=== PATIENT | female | born 1990 | race African-American/Black ===

== ENCOUNTER 2020-06-20 15:21 | Outpatient (REF) | payer OTHER, SELFPAY | END 2020-06-20 15:22 | disposition home or self-care (01) | LOC: HO.LAB 15:21 | PROVIDERS: Visit Provider Internal Medicine | DX: Z20.822 Contact with and (suspected) exposure to COVID-19 (principal) | CPT/HCPCS: 36415; C9803; U0003; U0005 ==

== ENCOUNTER 2020-08-01 14:12 | Outpatient (REF) | payer OTHER, SELFPAY ==
[2020-08-01 14:59] LABS: COVID-19 Test Negative (Negative)
== END 2020-08-01 14:13 | disposition home or self-care (01) ==
LOC: HO.LAB 14:12
PROVIDERS: Visit Provider Internal Medicine
DX: Z20.822 Contact with and (suspected) exposure to COVID-19 (principal)
CPT/HCPCS: 36415; 87635; C9803

== ENCOUNTER 2020-08-14 09:18 | Outpatient (REF) | payer OTHER, SELFPAY | END 2020-08-14 09:19 | disposition home or self-care (01) | LOC: HO.LAB 09:18 | PROVIDERS: Visit Provider Internal Medicine | DX: Z20.822 Contact with and (suspected) exposure to COVID-19 (principal) | CPT/HCPCS: C9803; U0003; U0005 ==

== ENCOUNTER 2021-10-05 12:09 | Outpatient (REF) | payer OTHER, SELFPAY ==
[2021-10-05 12:26] LABS: MANUAL DIFF FLAG NO
[2021-10-05 13:19] LABS: Basophils Percent Auto 0.4 % (0-2); Eosinophils Absolute Auto 0.2 X10*3/uL (0.0-0.4); Eosinophils Percent Auto 1.8 % (0-4); Hematocrit 38.9 % (37.0-47.0); Hemoglobin 12.8 g/dl (12.0-16.0); Imm Gran Abs Auto 0.04 X10*3/uL (0.00-0.03); Imm Gran Pct Auto 0.5 % (0.0-0.4); Lymphocytes Absolute Auto 2.4 X10*3/uL (1.2-4.9); Mean Corpuscular HGB Conc 32.9 g/dl (31.0-35.0); Mean Corpuscular Hemoglobin 29.8 pg (27.0-33.0); Mean Corpuscular Volume 90.7 fL (80.0-98.0); Monocytes Absolute Auto 0.6 X10*3/uL (0.1-1.2); Monocytes Percent Auto 6.5 % (2-11); Neutrophils Absolute Auto 5.2 x10*3/uL (2.0-8.3); Neutrophils Percent Auto 61.8 % (45-73); Platelet Count 282 X10*3/uL (160-400); Red Blood Count 4.29 X10*6/uL (4.20-5.50); Red Cell Distribution Width 12.7 % (11.0-16.0); White Blood Count 8.4 X10*3/uL (4.8-10.8)
[2021-10-05 14:14] LABS: Free T4 (Free Thyroxine) 0.91 ng/dL (0.71-1.85); Thyroid Stimulating Hormone 1.07 uIU/mL (0.32-4.0); Vitamin D 25-OH Total 11.2 ng/mL (>30)
[2021-10-05 14:19] LABS: Alanine Aminotransferase 44 U/L (0-31); Albumin Level 4.2 g/dL (3.5-5.0); Alkaline Phosphatase 93 U/L (39-117); Anion Gap 11 (12-20); Aspartate Amino Transferase 24 U/L (5-31); Bilirubin Total 0.7 mg/dL (0.0-1.0); Blood Urea Nitrogen 7 mg/dL (9-16); Calcium 8.8 mg/dL (8.4-10.2); Carbon Dioxide 28 mmol/L (22-29); Chloride 105 mmol/L (96-108); Cholesterol 167 mg/dL; Estimated Glomerular Filt Rate > 60; Glucose Random 93 mg/dL (60-115); HDL Cholesterol 42 mg/dL; LDL Cholesterol Calculated 110 mg/dl; Potassium 4.3 mmol/L (3.3-5.1); Sodium 140 mmol/L (135-145); Total Protein 7.1 g/dL (6.5-8.0); Triglycerides 77 mg/dL
[2021-10-05 14:21] LABS: Folate 8.4 ng/mL (> or = 4.0); Vitamin B12 326 pg/mL (200-900)
[2021-10-05 14:43] LABS: Estimated Average Glucose 117 mg/dL; Hemoglobin A1c % 5.7 %
[2021-10-05 14:50] LABS: Appearance Urine CLEAR; Color Urine YELLOW; Glucose Urine UA NEG (NEG); Leukocyte Esterase Urine NEG (NEG); Nitrite Urine NEG (NEG); Urine Blood 1+ (NEG); Urine Ketones NEG (NEG); Urine Protein NEG (NEG-TRACE)
[2021-10-05 15:04] LABS: Bacteria Urine 1+ /LPF; RBC Urine 0-2 /HPF (0); Squamous Epithelial Cell Urine 3+ /LPF; WBC Urine 0-2 /HPF (0-4)
== END 2021-10-05 12:10 | disposition home or self-care (01) ==
LOC: HO.LAB 12:09
PROVIDERS: PCP Internal Medicine; Visit Provider Internal Medicine
DX: E78.00 Pure hypercholesterolemia, unspecified (principal); E66.9 Obesity, unspecified
CPT/HCPCS: 36415; 80053; 80061; 81001; 82306; 82607; 82746; 83036; 84439; 84443; 85025

== ENCOUNTER 2022-02-25 08:34 | Outpatient (REF) | payer OTHER, SELFPAY ==
--- NOTE | ~2022-02-25 | US_ITS ---
EXAMINATION: US ABDOMEN COMPLETE CLINICAL INFORMATION: Other specified abnormal findings of blood chemistry. COMPARISON: CT abdomen and pelvis with contrast 01/12/2014. Ultrasound abdomen complete 01/02/2014. TECHNIQUE: Real-time imaging of the abdominal viscera. FINDINGS: PANCREAS: Not well visualized due to bowel gas ABDOMINAL AORTA: The proximal and distal segments are normal in caliber. Midabdominal aorta is not well visualized due to bowel gas. INFERIOR VENA CAVA: Visualized portions are normal. LIVER: The liver is normal in size. The liver contour is normal. Liver echotexture is slightly increased. No focal hepatic lesion. There is no intrahepatic biliary duct dilatation seen. GALLBLADDER: Surgically absent. COMMON BILE DUCT: Normal in caliber measuring 0.4 cm in diameter. RIGHT KIDNEY: Normal. No hydronephrosis. No renal calculi or focal parenchymal lesions. The kidney measures 12.0 cm in maximum dimension. LEFT KIDNEY: Normal. No hydronephrosis. No renal calculi or focal parenchymal lesions. The kidney measures 11.6 cm in maximum dimension. SPLEEN: Normal. The spleen measures 7.9 cm in maximum dimension. FREE FLUID: None. US/US abdomen complete IMPRESSION: Slightly echogenic liver probably representing fatty infiltration. Postcholecystectomy. Limited visualization of the pancreas and mid abdominal aorta.
== END 2022-02-25 08:35 | disposition home or self-care (01) ==
LOC: HO.US 08:34
PROVIDERS: Visit Provider Internal Medicine
DX: R79.89 Other specified abnormal findings of blood chemistry (principal); Z90.49 Acquired absence of other specified parts of digestive tract
CPT/HCPCS: 76700

== ENCOUNTER → 2022-07-04 11:19 | Outpatient (BNVA) | payer OTHER, SELFPAY | PROVIDERS: PCP Internal Medicine; Visit Provider Physician Assistant Medical | DX: S60.871A Other superficial bite of right wrist, initial encounter (principal); W50.3XXA Accidental bite by another person, initial encounter | CPT/HCPCS: 99203 ==

== ENCOUNTER → 2022-07-26 10:08 | Outpatient (BNVA) | payer OTHER, SELFPAY | PROVIDERS: PCP Internal Medicine; Visit Provider Dietitian, Registered | DX: E66.9 Obesity, unspecified (principal); Z68.38 Body mass index [BMI] 38.0-38.9, adult | CPT/HCPCS: 97802 ==

== ENCOUNTER 2022-09-15 15:12 | Emergency (ER) | payer OTHER, SELFPAY ==
[2022-09-15 15:20] VITALS: BP 136/86; PULSE 64; RESP 16; TEMP 36.7; O2SAT 98; BMI 37.1
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
[2022-09-15] MEDS: Lidocaine 4 % Patch ADH..PATCH 1 PATCH TRANSDERMA (16:45)
[2022-09-15] MEDS: Acetaminophen 325 MG TABLET 975 MG PO (16:45)
[2022-09-15] MEDS: Ketorolac Tromethamine 15 MG/ML VIAL IM (16:46)
== END 2022-09-15 16:51 | disposition home or self-care (01) ==
PROVIDERS: Emergency Provider Student in an Organized Health Care Education/Training Program; PCP Internal Medicine
DX: S16.1XXA Strain of muscle, fascia and tendon at neck level, initial encounter (principal); V43.52XA Car driver injured in collision with other type car in traffic accident, initial encounter; M62.838 Other muscle spasm; Y93.89 Activity, other specified; Y92.414 Local residential or business street as the place of occurrence of the external cause; Y99.9 Unspecified external cause status
CPT/HCPCS: 96372; 99283; 99284; J1885

== ENCOUNTER 2022-10-30 11:35 | Outpatient (AMB) | payer OTHER, SELFPAY ==
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
[2022-10-30 11:38] VITALS: BP 134/70; PULSE 60; O2SAT 100; BMI 37.3
== END 2022-10-30 12:40 | disposition home or self-care (01) ==
PROVIDERS: PCP Internal Medicine; Visit Provider Nurse Practitioner Family
DX: M25.552 Pain in left hip (principal); V89.2XXA Person injured in unspecified motor-vehicle accident, traffic, initial encounter; M54.2 Cervicalgia
CPT/HCPCS: 99213

== ENCOUNTER 2023-04-21 12:27 | Outpatient (AMB) | payer OTHER, SELFPAY ==
[2023-04-21 12:28] VITALS: BP 132/70; PULSE 105; O2SAT 100; BMI 38.7
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
== END 2023-04-21 13:07 | disposition home or self-care (01) ==
PROVIDERS: Visit Provider Internal Medicine
DX: Z00.00 Encounter for general adult medical examination without abnormal findings (principal); E66.9 Obesity, unspecified; Z68.38 Body mass index [BMI] 38.0-38.9, adult; F17.210 Nicotine dependence, cigarettes, uncomplicated; J45.909 Unspecified asthma, uncomplicated
CPT/HCPCS: 99395

== ENCOUNTER 2023-10-20 14:39 | Outpatient (AMB) | payer OTHER, SELFPAY ==
[2023-10-20 14:41] VITALS: BP 136/62; PULSE 92; O2SAT 99; BMI 40.5
--- NOTE | 2023-10-20 14:41 | A.OFFPC_ITS ---
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 Ann coming in for 7D physical. Patient has no prior history of diabetes, epilepsy, or any other impairment that may affect her driving. Her asthma is well controlled at this time on albuterol as needed. [facility] Medical History Asthma Recurrent major depression Upper respiratory tract infection Surgical History H/O tooth extraction History of cholecystectomy History of hip surgery Family History (Updated 04/21/23 @ 12:48 by Aron Ann MD) Father Medical history unknown Throat cancer Mother Hypertension Daughter Asthma Son Alive and well Maternal Aunt Diabetes Substance abuse Psychiatric diagnosis Maternal Uncle Myocardial infarct Substance abuse Paternal Uncle Substance abuse Sister Psychiatric diagnosis Brother Psychiatric diagnosis Social History (Updated 04/21/23 @ 12:49 by Aron Ann MD) Housing: Apartment Alcohol intake: current Comment: ONCE A month glass Patient Tobacco Use Status: Current someday Tobacco user Tobacco use type: Cigarette Cigarettes Per Day: 3 e-Cigarette/Vaping Use: Never Used Second Hand Smoke Exposure: No Current occupational status: employed Cognitive needs: No Hearing needs: No Vision needs: No Questionnaire Thrive Questionnaire Date Thrive assessed: 04/21/23 AUDIT C Alcohol Use Questionnaire (AUDIT-C) 1. How often do you have a drink containing alcohol?: Monthly or less (social) 2. How many drinks containing alcohol do you have on a typical day when you are drinking?: 1 or 2 3. How often do you have six or more drinks on one occasion?: Never Total Score: 1 Score Reviewed/Action Taken: No ANDRZEJ-7 AMB Questionnaire ANDRZEJ-7 Date ANDRZEJ - 7 assessed: 04/21/23 Source: Developed by Drs. Desmond Grey, Sally Lerma, Rowdy Scott and colleagues, with an educational lawrence from [employer]. Review of Systems Const Denies body aches, Denies fatigue, Denies fever(s), Denies frequent falls, Denies headache(s) and Denies weakness Eyes Reports no additional complaints and Denies change in vision ENT Denies dysphagia, Denies dizziness, Denies facial pain, Denies headache(s), Denies nasal congestion and Denies odynophagia Card Denies chest pain, Denies syncope, Denies irregular heart rhythm, Denies leg edema, Denies lightheadedness and Denies dyspnea Resp Denies cough and Denies dyspnea GI Denies constipation, Denies dysphagia, Denies dyspepsia, Denies diarrhea, Denies nausea, Denies odynophagia and Denies vomiting Denies urinary frequency, Denies dysuria, Denies urinary hesitancy and Denies urinary urgency Musc Details: Bilateral intermittent numbness and tingling in hands and occasional bilateral leg swelling Denies back pain and Denies myalgias Skin/Breast Reports system reviewed and no additional complaints, except as documented Neuro Denies dizziness, Denies syncope, Denies frequent falls, Denies headache(s) and Denies weakness Psych Reports no additional complaints Endo Denies fatigue Physical exam (Primary Care) Vital Signs: Last Vital Signs Pulse 92 10/20/23 14:41 BP 136/62 10/20/23 14:41 Pulse Ox 99 10/20/23 14:41 Oxygen Delivery Method Room Air 10/20/23 14:41 BMI result Body Mass Index 40.5 Tobacco/Smoking Status: Tobacco use Status Tobacco use date assessed 04/21/23 10/20/23 14:42 Patient Tobacco Use Status Current someday Tobacco 10/20/23 14:42 Tobacco use type Cigarette 10/20/23 14:42 e-Cigarette/Vaping Use Never Used 10/20/23 14:42 Thrive Assessment: Date of Thrive Assessment Date Thrive assessed 04/21/23 10/20/23 14:42 Const Other: Patient is 9 months General: cooperative, healthy appearing, comfortable and no acute distress Orientation/consciousness: patient oriented x3 HENMT Head: Yes normocephalic Ears: hearing grossly normal bilaterally (Whisper test is normal bilaterally), external ears normal, TM's normal bilaterally and EAC's normal General nose exam: Normal external nose present Face and sinus: Yes normal facial exam and Yes sinuses nontender Mouth: Normal oral and palatal mucosa present and tongue normal Throat: Yes posterior oropharynx normal Eyes General: appearance normal, both eyes and all related structures Conjunctivae: conjunctivae normal Pupils: Equal, round and reactive pupils present EOM: EOMs intact bilaterally and No Nystagmus present Neck Neck: Yes normal visual inspection, Yes full ROM and Yes no lymphadenopathy Chest Chest palpation & inspection: normal inspection of the chest Resp Effort & Inspection: normal respiratory effort Auscultation: clear to auscultation bilaterally, no crackles, no rales, no rhonchi, no wheezes and breath sounds present Cardio Rate: regular rate Rhythm: regular rhythm Peripheral pulses: radial pulses present and dorsalis pedis present GI Inspection: Yes normal to inspection and No Abdominal wall edema Palpation (GI): Soft to palpation, not firm and nontender Auscultation: normal bowel sounds Rectal Exam - Female: deferred General: Yes no CVA tenderness Back/Spine/Pelvis Back: no CVA tenderness Skin General skin exam: no rashes or lesions noted Neuro General: patient oriented x3 Cranial nerves: Yes Equal, round and reactive pupils present, Yes Midline tongue present, Yes Ability to bilaterally elevate shoulders present and No Nystagmus present Gait exam (Neuro): Normal gait present Extrem General: Yes normal to inspection, Yes full ROM, No no pedal edema and No edema Psych Speech and movement: Normal speech and movement present Affect: normal affect Insight: Good insight present (Psych) Judgement: Good judgement present (Psych) Office Procedures Vision Screening Right Eye: 20/13 Left Eye: 20/13 Bilateral: 20/13 Color: Pass Corrected: Pass (no glasses) Steropsis: Pass Overall Vision Screening Results: Pass [id number] - Vision Screening Assessment and Plan Assessment & Plan (1) Physical exam, pre-employment: Code(s): Z02.1 - Encounter for pre-employment examination Plan: 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 In the office she has passed her vision screening as well as the whisper test for hearing screening. Her clearance forms were filled out in the office today. Physical exam was unremarkable and within normal limits. Plan This note was constructed using voice recognition software. While every effort has been made to ensure accuracy and education professor, still areas may have been included sometimes these areas may affect the content or meeting of the given symptoms. Total time spent caring for the patient today was 30 minutes. This includes time spent before the visit reviewing the chart, time spent during the visit, and time spent after the visit and documentation. Orders: Orders AMB Vision Screening Today Z01.00 - Encounter for examination of eyes and vision without abnormal findings Coding Level of Care Code Est Pt Level 4 (80086) Diagnoses Physical exam, pre-employment Z02.1 CPT Codes Vision Screening - Vision Screenin - Vision Screening ([id number])
== END 2023-10-20 15:10 | disposition home or self-care (01) ==
PROVIDERS: PCP Internal Medicine
DX: J45.909 Unspecified asthma, uncomplicated (principal); Z01.00 Encounter for examination of eyes and vision without abnormal findings
CPT/HCPCS: 99173; 99214

== ENCOUNTER 2024-01-16 09:52 | Outpatient (AMB) | payer OTHER, SELFPAY ==
[2024-01-16 09:52] VITALS: BP 150/98; PULSE 62; O2SAT 99; BMI 37.9
--- NOTE | 2024-01-16 09:52 | A.OFFPC_ITS ---
Vital Signs 01/16/24 09:52 Height 5 ft 6 in Weight 235 lb 0.4 oz BMI 37.9 BP 150/98 H Blood Pressure Location Lt brachial Position Sitting Pulse 62 Pulse Source Pulse Oximeter Pulse Oximetry (%) 99 Oxygen Delivery Method Room Air Intake Visit Reasons: post- and her BP has remained high Sign Maintenance Required: No Allergies No Known Allergies Allergy (Verified 01/16/24 09:55) Medication List - Last Reconciled 01/16/24 by Evelin Hutchinson PA-C acetaminophen ER 650 mg PO TID albuterol sulfate 90 mcg/actuation (Ventolin HFA) 2 puffs PO QID PRN blood pressure monitor (Blood Pressure Kit) As directed ibuprofen 800 mg PO TID nifedipine ER 30 mg PO DAILY Tobacco use date assessed: 04/21/23 Dental Screening Dental Screen Date: 04/21/23 HPI post- and her BP has remained high HPI Details 33-year-old female with past medical his tory of asthma and recurrent major depression last seen September 2023 coming in for acute problem. Patient delivered a full-term baby boy November 06 2023. Throughout her she had hypertension and was given nifedipine by her OBGYN and eventually had to be induced due to high blood pressure. Blood pressures at home have been elevated and we will occasionally have headaches that go away with Tylenol. She was seen by her OBGYN who advised to follow up with PCP for possible continued management of hypertension. She also mentioned she has a history of left hip surgery and continues to have left hip pain has used cyclobenzaprine in the past with good relief. [facility] Medical History Asthma Recurrent major depression Upper respiratory tract infection Surgical History H/O tooth extraction History of cholecystectomy History of hip surgery Family History (Updated 04/21/23 @ 12:48 by Aron Ann MD) Father Medical history unknown Throat cancer Mother Hypertension Daughter Asthma Son Alive and well Maternal Aunt Diabetes Substance abuse Psychiatric diagnosis Maternal Uncle Myocardial infarct Substance abuse Paternal Uncle Substance abuse Sister Psychiatric diagnosis Brother Psychiatric diagnosis Social History (Updated 04/21/23 @ 12:49 by Aron Ann MD) Housing: Apartment Alcohol intake: current Comment: ONCE A month glass Patient Tobacco Use Status: Current someday Tobacco user Tobacco use type: Cigarette Cigarettes Per Day: 3 e-Cigarette/Vaping Use: Never Used Second Hand Smoke Exposure: No Current occupational status: employed Cognitive needs: No Hearing needs: No Vision needs: No Questionnaire PHQ-9 Over the last 2 weeks, how often have you been bothered by any of the following problems? 1. Little interest or pleasure in doing things: more than half the days 2. Feeling down, depressed, or hopeless: not at all 3. Trouble falling or staying asleep, or sleeping too much: several days 4. Feeling tired or having little energy: several days 5. Poor appetite or overeating: more than half the days 6. Feeling bad about yourself - or that you are a failure or have let yourself or your family down: not at all 7. Trouble concentrating on things, such as reading the newspaper or watching television: more than half the days 8. Moving or speaking so slowly that other people could have noticed. Or the opposite - being so fidgety or restless that you have been moving around a lot more than usual: not at all 9. Thoughts that you would be better off or of hurting yourself in some wa y: not at all Total score: 8 Depression Screening Interpretation: Negative Depression Screening Done: Yes 68480 - PHQ-9 Billing: Yes Source: Developed by Drs. Desmond Grey, Sally Lerma, Rowdy Scott and colleagues, with an educational lawrence from [employer]. Thrive Questionnaire Date Thrive assessed: 04/21/23 AUDIT C Alcohol Use Questionnaire (AUDIT-C) 1. How often do you have a drink containing alcohol?: Monthly or less (social) 2. How many drinks containing alcohol do you have on a typical day when you are drinking?: 1 or 2 3. How often do you have six or more drinks on one occasion?: Never Total Score: 1 Score Reviewed/Action Taken: No ANDRZEJ-7 AMB Questionnaire ANDRZEJ-7 Date ANDRZEJ - 7 assessed: 01/16/24 Feeling nervous, anxious, or on edge: 2 = More than half the days Not being able to stop or control worryin = Several days Worrying too much about different things: 1 = Several days Trouble relaxin = Several days Being so restless that it is hard to sit still: 0 = Not at all Becoming easily annoyed or irritable: 1 = Several days Feeling afraid as if something awful might happen: 1 = Several days Total ANDRZEJ-7 score (0-4 normal; 5-9 mild; 10-14 moderate; 15-21 severe): 7 Source: Developed by Drs. Desmond Grey, Sally Lerma, Rowdy Scott and colleagues, with an educational lawrence from [employer]. ANDRZEJ-7 Assessment Billing ANDRZEJ-7 Assessment Tool: ANDRZEJ-7 Assessment 70298 Review of Systems Const Denies body aches, Denies chills, Denies fever(s), Denies headache(s) and Denies poor appetite Eyes Reports no additional complaints ENT Denies dizziness and Denies headache(s) Card Denies chest pain, Denies syncope, Denies edema, Denies irregular heart rhythm and Denies lightheadedness Resp Denies cough GI Denies abdominal pain, Denies constipation, Denies diarrhea, Denies nausea and Denies vomiting Reports no additional complaints Musc Reports no additional complaints, Denies abnormal gait and Reports arthralgias (left hip pain) Skin/Breast Reports system reviewed and no additional complaints, except as documented Neuro Denies abnormal gait, Denies dizziness, Denies syncope and Denies headache(s) Psych Reports no additional complaints Physical exam (Primary Care) Vital Signs: Last Vital Signs Pulse 62 01/16/24 09:52 BP 150/98 H 01/16/24 09:52 Pulse Ox 99 01/16/24 09:52 Oxygen Delivery Method Room Air 01/16/24 09:52 BMI result Body Mass Index 37.9 Tobacco/Smoking Status: Tobacco use Status Tobacco use date assessed 04/21/23 01/16/24 09:53 Patient Tobacco Use Status Current someday Tobacco 01/16/24 09:53 Tobacco use type Cigarette 01/16/24 09:53 e-Cigarette/Vaping Use Never Used 01/16/24 09:53 PHQ-9: PHQ-9 Score PHQ-9: Total score 8 01/16/24 09:58 Depression Screening Interpretation: Negative Thrive Assessment: Date of Thrive Assessment Date Thrive assessed 04/21/23 01/16/24 09:53 Const General: cooperative, healthy appearing, comfortable and no acute distress Orientation/consciousness: patient oriented x3 HENMT Head: Yes normocephalic Ears: hearing grossly normal bilaterally General nose exam: Normal external nose present Eyes General: appearance normal, both eyes and all related structures Conjunctivae: conjunctivae normal Neck Neck: Yes full ROM and Yes no lymphadenopathy Resp Effort & Inspection: normal respiratory effort Auscultation: clear to auscultation bilaterally, no crackles, no rales, no rhonchi and no wheezes Cardio Rate: regular rate Rhythm: regular rhythm Skin General skin exam: no rashes or lesions noted Neuro General: patient oriented x3 Gait exam (Neuro): Normal gait present Extrem General: Yes normal to inspection, Yes full ROM and No edema Psych Affect: normal affect Attitude: cooperative Insight: Good insight present (Psych) Judgement: Good judgement present (Psych) Coding Level of Care Code Est Pt Level 3 (03163) Diagnoses Hypertension I10 Left hip pain M25.552 Additional Codes ANDRZEJ-7 Assessment Billing - ANDRZEJ-7 Assessment Tool: ANDRZEJ-7 Assessment 48672 ([id number]) Assessment & Plan Assessment & Plan (1) Hypertension: Code(s): I10 - Essential (primary) hypertension Category: Medical Plan: Blood pressure elevated in the office today. Prescription sent for nifedipine 30 mg advised to take blood pressure and follow up in 2 months. Avoid salt intake and encourage healthy diet and regular exercise. (2) Left hip pain: Code(s): M25.552 - Pain in left hip Category: Medical Plan: Patient has a history of left hip surgery and is complaining of recurrent pain. Prescription given for cyclobenzaprine. Plan This note was constructed using voice recognition software. While every effort has been made to ensure accuracy and marketing graphics specialist, still areas may have been included sometimes these areas may affect the content or meeting of the given symptoms. Total time spent caring for the patient today was 30 minutes. This includes time spent before the visit reviewing the chart, time spent during the visit, and time spent after the visit and documentation. Orders: Orders Comprehensive Met. Panel Today Z00.00 - Encounter for general adult medical examination without abnormal findings Complete Blood Count Auto Diff Today Z00.00 - Encounter for general adult medical examination without abnormal findings Vitamin B12 and Folate Today Z00.00 - Encounter for general adult medical examination without abnormal findings Hemoglobin A1c Today Z00.00 - Encounter for general adult medical examination without abnormal findings UA CC w/rflx Micro + Cult Today R35.89 - Other polyuria Free T4 (Free Thyroxine) Today Z00.00 - Encounter for general adult medical examination without abnormal findings Lipid Panel Today Z00.00 - Encounter for general adult medical examination without abnormal findings TSH reflex Free T4 Today Z00.00 - Encounter for general adult medical examination without abnormal findings Vitamin D 25-OH (D2 and D3) Today Z00.00 - Encounter for general adult medical examination without abnormal findings Referrals Dermatology Referral L63.9 - Alopecia areata, unspecified Medications: New cyclobenzaprine 5 mg PO BEDTIME PRN 20 tabs 0RF muscle spasm nifedipine ER 30 mg PO DAILY 30 tabs 2RF
== END 2024-01-16 10:54 | disposition home or self-care (01) ==
PROVIDERS: PCP Internal Medicine
DX: I10 Essential (primary) hypertension (principal); M25.552 Pain in left hip

== ENCOUNTER → 2024-01-16 09:52 | Outpatient (BNVA) | payer OTHER, SELFPAY | PROVIDERS: PCP Internal Medicine | DX: I10 Essential (primary) hypertension (principal); M25.552 Pain in left hip | CPT/HCPCS: 96127; 99212 ==

== ENCOUNTER 2024-04-26 10:13 | Outpatient (AMB) | payer OTHER, SELFPAY ==
[2024-04-26 10:21] VITALS: BP 134/86; PULSE 62; O2SAT 99; BMI 39.2
--- NOTE | 2024-04-26 10:21 | A.OFFPC_ITS ---
Vital Signs 04/26/24 10:21 Height 5 ft 6 in Weight 243 lb BMI 39.2 BP 134/86 Blood Pressure Location Lt brachial Position Sitting Pulse 62 Pulse Source Pulse Oximeter Pulse Oximetry (%) 99 Oxygen Delivery Method Room Air Intake Visit Reasons: Annual Exam Intake Note: Patient here for an annual physical exam Commander Internal Affairs Required: No Accompanied by: Self / Same As Patient Allergies No Known Allergies Allergy (Verified 04/26/24 10:22) Medication List - Last Reconciled 04/26/24 by Aron Ann MD acetaminophen ER 650 mg PO TID albuterol sulfate 90 mcg/actuation (Ventolin HFA) 2 puffs PO QID PRN blood pressure monitor (Blood Pressure Kit) As directed cyclobenzaprine 5 mg PO BEDTIME PRN ibuprofen 800 mg PO TID nifedipine ER 30 mg PO DAILY Tobacco use date assessed: 04/26/24 Dental Screening Dental Screen Date: 04/26/24 Did you have a dental visit in the last 12 months?: Yes Did you have a dental problem in the last 6 months where you did not have access to dental care?: No Was dental information given to patient?: Patient has dentist HPI Annual Exam HPI Details The patient is a 33-year-old female presenting with routine physical examination and management of hypertension and asthma. The patient reports a history of essential hypertension, currently managed with nifedipine 30 mg once a day. She has been advised to monitor her kidney function due to ibuprofen use for pain when necessary. The patient is diagnosed with asthma and uses her inhaler twice a week, with increased use observed during colder months. There is no history of allergy except for the use of a muscle relaxant for hip stiffness. The patient acknowledges the necessity for blood work but did not complete the prescribed labs for her fatty liver condition. Her history is notable for family history of throat cancer and myocardial infarction on her mother's side. She ceased consuming alcohol nearly a year ago and smokes marijuana daily. - Pneumonia vaccine discussion with bria monroy given nicotine use and asthma - Monitoring of hemoglobin A1c due to fa lavinia history of diabetes; previous result at 5.7% - Liver function monitoring due to past elevated values and fatty liver - Blood pressure management with ongoing treatment - Discussion on adopting dietary changes , focusing on increasing vegetable intake - Encouragement to maintain hydration wi th six to eight glasses of water daily - Exercise encouragement with establishe d walking routine and home exercises - Smoking cessation advice with consider ation of edibles to mitigate respiratory risks - Family Status: Mother of five children , one five months old. - Exercise: Walking with the baby and ho me exercises using mats. - Substance Use: Daily use of marijuana; occasional tobacco use. - Alcohol Consumption: Ceased one year a go. - Smoking: Smoke cigarettes on rare occa sions; primarily uses marijuana. - Nutrition: Increased focus on vegetabl es and maintaining hydration. - General: Denies passing out or dizzine ss; reports feeling sleepy. - Cardiovascular: Reports occasional harinder st pains with heaviness. - Gastrointestinal: Denies heartburn; cuco wel movements regular. - Genitourinary: Wakes up once at night to urinate. - Respiratory: Denies waking up short of breath. - Lab: Previous hemoglobin A1c bordering normal at 5.7%. - Lab: LDL cholesterol recorded at 110. - TBD: Pending liver function tests. [facility] Medical History Asthma Recurrent major depression Upper respiratory tract infection Surgical History H/O tooth extraction History of cholecystectomy History of hip surgery Family History (Updated 04/26/24 @ 10:33 by Aron Ann MD) Father Medical history unknown Throat cancer Mother Hypertension Daughter Asthma Son Alive and well Maternal Aunt Diabetes Substance abuse Psychiatric diagnosis Maternal Uncle Heart attack Substance abuse Paternal Uncle Substance abuse Sister Psychiatric diagnosis Brother Psychiatric diagnosis Social History (Updated 04/26/24 @ 10:35 by Aron Ann MD) Housing: Apartment Alcohol intake: current Comment: so far none since last year Patient Tobacco Use Status: Current someday Tobacco user Tobacco use type: Cigarette Cigarettes Per Day: 3 Years Smoked: marijuana e-Cigarette/Vaping Use: Never Used Second Hand Smoke Exposure: No service: No Current occupational status: employed Cognitive needs: No Hearing needs: No Vision needs: No Questionnaire PHQ-9 Over the last 2 weeks, how often have you been bothered by any of the following problems? 1. Little interest or pleasure in doing things: not at all 2. Feeling down, depressed, or hopeless: not at all 3. Trouble falling or staying asleep, or sleeping too much: several days 4. Feeling tired or having little energy: several days 5. Poor appetite or overeating: several days 6. Feeling bad about yourself - or that you are a failure or have let yourself or your family down: not at all 7. Trouble concentrating on things, such as reading the newspaper or watching television: several days 8. Moving or speaking so slowly that other people could have noticed. Or the opposite - being so fidgety or restless that you have been moving around a lot more than usual: not at all 9. Thoughts that you would be better off or of hurting yourself in some way: not at all Total score: 4 Depression Screening Interpretation: Positive Depression Screening Done: Yes Source: Developed by Drs. Desmond Grey, Sally Lerma, Rowdy Scott and colleagues, with an educational lawrence from [employer]. Thrive Questionnaire Date Thrive assessed: 04/26/24 I am a: Patient What is your living situation today?: I have a steady place to live Within the past 12 months, did the food you bought not last and you didn't have the money to get more?: Often true Within the past 12 months, did you worry whether your food would run out before you got money to buy more?: Sometimes True Do you have trouble paying for medicines?: No Do you have trouble getting transportation to medical appointments?: No Do you have trouble paying your heating and electricity bill?: Yes Do you have trouble taking care of your child, family member or friend?: No Do you have trouble with day-to-day activities such as bathing, preparing meals, shopping, managing finances, etc.?: No Are you currently unemployed and looking for a job?: I choose not to answer this question Are you interested in more education?: Yes Please select the resources that you would like help with: None Currently or been in a relationship where the following occur: No concerns reported THRIVE Score: 3 AUDIT C Alcohol Use Questionnaire (AUDIT-C) 1. How often do you have a drink containing alcohol?: Monthly or less 2. How many drinks containing alcohol do you have on a typical day when you are drinking?: 1 or 2 3. How often do you have six or more drinks on one occasion?: Never Total Score: 1 ANDRZEJ-7 AMB Questionnaire ANDRZEJ-7 Date ANDRZEJ - 7 assessed: 04/26/24 Feeling nervous, anxious, or on edge: 1 = Several days Not being able to stop or control worryin = Several days Worrying too much about different things: 1 = Several days Trouble relaxin = Several days Being so restless that it is hard to sit still: 0 = Not at all Becoming easily annoyed or irritable: 1 = Several days Feeling afraid as if something awful might happen: 0 = Not at all Total ANDRZEJ-7 score (0-4 normal; 5-9 mild; 10-14 moderate; 15-21 severe): 5 Source: Developed by Drs. Desmond Grey, Sally Lerma, Rowdy Scott and colleagues, with an educational lawrence from [employer]. Review of Systems Const Denies poor appetite and Denies weakness Eyes Denies no additional complaints ENT Reports Normal hearing present, Denies dizziness, Denies nasal congestion, Denies tinnitus and Denies sore throat Card Denies chest pain, Denies syncope, Denies rapid heart rate and Denies dyspnea Resp Denies cough and Denies dyspnea GI Denies change in stool character, Reports constipation, Denies diarrhea, Denies nausea and Denies vomiting Denies urinary frequency, Denies difficulty voiding and Denies dysuria Neuro Reports Normal hearing present, Denies confusion, Denies dizziness, Denies syncope and Denies weakness Psych Denies confusion Physical exam (Primary Care) Vital Signs: Last Vital Signs Pulse 62 04/26/24 10:21 BP 134/86 04/26/24 10:21 Pulse Ox 99 04/26/24 10:21 Oxygen Delivery Method Room Air 04/26/24 10:21 BMI result Body Mass Index 39.2 Tobacco/Smoking Status: Tobacco use Status Tobacco use date assessed 04/26/24 04/26/24 10:26 Patient Tobacco Use Status Current someday Tobacco 04/26/24 10:26 Tobacco use type Cigarette 04/26/24 10:26 e-Cigarette/Vaping Use Never Used 04/26/24 10:26 PHQ-9: PHQ-9 Score PHQ-9: Total score 4 04/26/24 10:26 Depression Screening Interpretation: Positive Thrive Assessment: Date of Thrive Assessment Date Thrive assessed 04/26/24 04/26/24 10:26 Currently or been in a relationship where the following occur: No concerns reported Const General: No confusion Orientation/consciousness: No confusion HENMT Head: Yes normocephalic Ears: external ears normal and TM's normal bilaterally Face and sinus: Yes normal facial exam Mouth: moist mucous membranes Throat: Yes tonsils normal Eyes Conjunctivae: conjunctivae normal Pupils: Equal, round and reactive pupils present and Pupil accommodation reflex normal Direct Ophthalmoscopy: normal light reflex Neck Neck: No lymphadenopathy Thyroid: Thyroid normal Chest Chest palpation & inspection: normal inspection of the chest Resp Effort & Inspection: normal respiratory effort and no audible wheezes Auscultation: clear to auscultation bilaterally, no crackles, no wheezes and lung sounds not diminished Cardio Rate: regular rate Rhythm: regular rhythm Peripheral pulses: radial pulses present and dorsalis pedis present GI Palpation (GI): no masses Auscultation: normal bowel sounds and normoactive bowel sounds Rectal Exam - Female: deferred Skin General skin exam: no rashes or lesions noted Rashes: no rashes Neuro General: No confusion Cranial nerves: Yes Equal, round and reactive pupils present and Yes Normal hearing present Cognition (Neuro): normal cognition Gait exam (Neuro): Normal gait present Motor exam (neuro): 5/5 motor strength present throughout Deep tendon reflexes (DTR's): Right brachioradialis reflex intensity grade: 2+, Left brachioradialis reflex intensity grade: 2+, Right patellar reflex intensity grade: 2+ and Left patellar reflex intensity grade: 2+ Extrem General: No edema Coding Level of Care Code Est Pt Prev Care 18-39y(72522) Diagnoses Annual physical exam Z00.00 Tobacco abuse Z72.0 Obesity (BMI 30-39.9) E66.9 Asthma J45.909 Recurrent major depression F33.9 LFT elevation R79.89 Hypertension I10 Assessment & Plan Assessment & Plan (1) Annual physical exam: Code(s): Z00.00 - Encounter for general adult medical examination without abnormal findings Category: Medical (2) Tobacco abuse: Code(s): Z72.0 - Tobacco use Category: Medical (3) Obesity (BMI 30-39.9): Code(s): E66.9 - Obesity, unspecified Category: Medical (4) Asthma: Code(s): J45.909 - Unspecified asthma, uncomplicated Category: Medical (5) Recurrent major depression: Comment: [facility] September 2021 Code(s): F33.9 - Major depressive disorder, recurrent, unspecified Category: Medical (6) LFT elevation: Code(s): R79.89 - Other specified abnormal findings of blood chemistry Category: Medical (7) Hypertension: Code(s): I10 - Essential (primary) hypertension Category: Medical Plan - Continue nifedipine 30 mg once daily for hypertension. - Refill muscle relaxants and advise to avoid during activities requiring concentration. - Monitor asthma with current inhaler use; consider controller inhaler if usage increases. - Obtain immediate fasting blood work for liver function and hemoglobin A1c. - Administer pneumococcal vaccine due to asthma and smoking history. - Encourage dietary intake of vegetables and adequate hydration. - Discuss smoking cessation with transition to edibles to avoid respiratory risks. - Monitor blood pressure, and kidney function with ibuprofen use. - Schedule follow-up for results and re-evaluation of chronic conditions. During the visit, I discussed with the patient the management of her essential hypertension and asthma. The importance of adherence to her current medications and the potential need for controller inhalers if asthma symptoms worsen were highlighted. We reviewed the risks associated with smoking, specifically the increased risk of heart attacks and lung damage, and explored alternatives such as edibles. The patient was informed about the need for regular blood tests to monitor liver function and blood glucose levels, given her family history. I recommended a diet rich in vegetables and adequate hydration to aid in her overall health maintenance. We reviewed the importance of flu vaccines and pneumococcal vaccination due to her smoking and asthma. The patient consented to the plan for a pneumococcal vaccine today and agreed to complete pending lab work. - Continue taking nifedipine as prescribed for blood pressure. - Use the asthma inhaler as needed and report if usage increases. - Obtain fasting blood work for liver function and hemoglobin A1c as soon as possible. - Ensure hydration with six to eight glasses of water daily. - Increase vegetable intake to improve dietary habits. - Avoid ibuprofen on an empty stomach and monitor for any side effects. - Consider quitting smoking and transitioning to edibles. - Schedule follow-up for vaccine administration and lab results. - Report any new or worsening symptoms immediately. Medications: Changed From cyclobenzaprine 5 mg PO BEDTIME PRN 20 tabs 0RF muscle spasm To cyclobenzaprine 5 mg PO BID PRN 60 tabs 0RF muscle spasm Refilled nifedipine ER 30 mg PO DAILY 90 tabs 2RF
--- OUTSIDE RECORDS SUMMARY | 2024-04-26 14:51 | XMS_ITS | Data Portability ---
Author Organization MICHAEL Cardenas [facility], [facility] Address [address] [place] [address] Assessment No assessment recorded. Plan of Treatment Reminders Order Date Submit Date Provider Last Modified By Organization Details Last Modified Time Details Appointments None recorded. Lab rapid strep group A, throat 2022 023 [email or web address] [facility], [address] [place] [address], [id number], 3 10:42:32 rapid SARS CoV 2 Ag, QL IA, respiratory specimen 2022 023 [email or web address] [facility], [address] [place] [address], [id number], 3 10:42:32 rapid strep group A, throat 2022 023 [email or web address] 5 [facility], [address] [place] [address], [id number], 3 12:28:27 Referral None recorded. Procedures None recorded. Surgeries None recorded. Imaging None recorded. Medication Orders amoxicillin 875 mg tablet 2022 023 [email or web address] [id number], [address] [place], [address], 3 10:43:22 amoxicillin 875 mg tablet 2022 023 [email or web address] 5 [id number], [address] [place], [address], 12:34:57 Patient TargetsNo targets recorded. Patient Instructions Encounter Date Encounter Id Patient Instructions Last Modified By Organization Details Last Modified Time 05/26/2022 [id number] sore throat: car e instructions Not available 05/26/2022 10:42:32 coronavirus (covid-19): care instructions Not available 05/26/2022 10:42:32 Discussed potential complications and intervention options with the patient during this visit. Patient was instructed to increase room humidity and eat soft bland foods. Raising the head of the bed, lozenges, and saline nasal spray were also recommended. Patient may take ibuprofen or acetaminophen as needed for pain control. If the issue does not improve in 24-48 hours, patient should return to the clinic for follow-up. You have been prescribed an antibiotic for your bacterial illness. While antibiotics are sometimes necessary, they can have a negative impact upon the healthy bacteria within your body. This can result in diarrhea/loose stools and yeast infections. By taking probiotics during the course of your prescription, you can lessen the probability of these undesirable side effects. Probiotics can be purchased [id number] at your pharmacy in the form of capsules or gummies. They are also found naturally in yogurt with live cultures. Mix salt into a quarter-glass of warm water and stir until no more salt will dissolve. Gargle and spit out the salt water mixture one mouthful at a time until the glass is empty. Repeat 4 times daily. Hand hygiene is a mcduffie measure for preventing spread to others, especially after coughing or sneezing and before preparing foods or eating, and we remind all patients of its importance. Please discard of your current tooth brush and get a new one after being on the antibiotic for 3-4 days to prevent reinfection. You are considered contagious until you have the antibiotic for 24 hours. We have sent out for lab results, typically take 3-5 days to return. Not available 05/26/2022 10:41:58 If you test positive for COVID-19, stay home for at least 5 days and isolate from others in your home. You are likely most infectious during these first 5 days. Wear a high-quality mask if you must be around others at home and in public. Do not go places where you are unable to wear a mask. For travel guidance, see CDC? s Travel webpage. Do not travel. Stay home and separate from others as much as possible. Use a separate bathroom, if possible. Take steps to improve ventilation at home, if possible. Don? t share personal household items, like cups, towels, and utensils. Monitor your symptoms. If you have an emergency warning sign (like trouble breathing), seek emergency medical care immediately. If you had symptoms and: Your symptoms are improving You may end isolation after day 5 if: You are fever-free for 24 hours (without the use of fever-reducing medication). Your symptoms are not improving Continue to isolate until: You are fever-free for 24 hours (without the use of fever-reducing medication). Your symptoms are improving. Regardless of when you end isolation Until at least day 11: Avoid being around people who are more likely to get very sick from COVID-19. Remember to wear a high-quality mask when indoors around others at home and in public. Do not go places where you are unable to wear a mask until you are able to discontinue masking (see below). For travel guidance, see CDC? s Travel webpage. [email or web address] Not available 05/26/2022 10:41:49 06/12/2022 [id number] sore throat: car e instructions [email or web address] Not available 06/12/2022 12:28:27 strep throat: ca re instructions [email or web address] Not available 06/12/2022 12:28:27 Take the antibiotic as prescribed. Drink plenty of fluids Take an over the counter probiotic daily while taking the antibiotic. Over the counter tylenol or ibuprofen may be taken per package instructions for pain or fever. Obtain a new toothbrush in 2 days. Gargle several times daily with warm, salty water. See printed instructions. Follow-up with your doctor in one week. Seek Emergency Medical evaluation for any worsening symptoms. [email or web address] Not available 06/12/2022 12:30:14 Reason for Referral None Reported. Results Created Date Observation Date Name Description Value Unit Range Abnormal Flag Note LastModifiedBy Organization Detail LastModifiedTime 05/26/19 23 05/26/2022 rapid SARS CoV 2 Ag, QL IA, respi rator y speci men Unknown Analyte Normal =Negat dwight Not Available [address] [place] [address], [place], [address], 05/26/2022 10:16:06 05/26/19 23 05/26/2022 rapid SARS CoV 2 Ag, QL IA, respi rator y speci men Unknown Analyte negati ve Not Available [address] [place] [address], [place], [address], 05/26/2022 10:16:06 05/26/19 23 05/26/2022 rapid strep group A, throa t Unknown Analyte Normal = Negati ve Not Available [address] [place] [address], [place], [address], 05/26/2022 10:16:11 05/26/19 23 05/26/2022 rapid strep group A, throa t Unknown Analyte positi ve Not Available [address] [place] [address], [place], [address], 05/26/2022 10:16:11 06/13/19 23 06/12/2022 rapid strep group A, throa t Unknown Analyte Normal = Negati ve Not Available [address] [place] [address], [place], [address], 06/12/2022 11:20:35 06/13/19 23 06/12/2022 rapid strep group A, throa t Unknown Analyte positi ve Not Available [address] [place] [address], [address], 06/12/2022 11:20:35 Result Notes None recorded. Problems Name Problem SNOMED Code Status Onset Date Resolution Date Notes Provider Name and Address Organization Details Recorded Time Alopecia 65691887 Active 023 MICHEAL Conner - [facility] 06/12/2022 11:22:44 Problem Notes None recorded. Procedures Surgical History Date Name Laterality Status Provider Name and Address Organization Details Recorded Time cholecystectomy completed Angelique Huertawilliam PA - [facility] 05/26/2022 10:19:16 Imaging Results None recorded. Procedure Notes None recorded. Medical Equipment None Reported. Allergies No known drug allergies Medications Name Sig Start Date Stop Date Status Note LastModified by Organization Details LastModified Time fluconazole 150 mg tablet TAKE 1 TABLET BY MOUTH NOW AND REPEAT DOSE IN 3 DAYS IF STILL HAVING SYMPTOMS 05/26 completed Not Available Not Available Not Available metronidazo le 500 mg tablet TAKE 1 TABLET BY MOUTH EVERY 12 HOURS 05/26 completed Not Available Not Available Not Available amoxicillin 875 mg tablet Take 1 tablet every 12 hours by oral route for 10 days. 2022 active Not Available Not Available Not Avai lable amoxicillin 875 mg-potassiu m clavulanate 125 mg tablet TAKE 1 TABLET (ORAL) 2 TIMES PER DAY FOR 10 DAYS FOR INFECTION --TAKE WITH FOOD 05/26 completed Not Available Not Available Not Available Ventolin HFA 90 mcg/actuati on aerosol inhaler TAKE 2 PUFFS BY MOUTH 4 TIMES A DAY NEEDED FOR SHORTNESS OF BREATH OR WHEEZING active Not Available Not Available No t Available cyclobenzap rine 5 mg tablet TAKE 1 TABLET BY MOUTH THREE TIMES A DAY NEEDED FOR MUSCLE SPASM FOR 15 DAYS active Not Available Not Available No t Available Minocin active Not Available Not Avail able Not Available Emma 30 mg tablet TAKE 1 TABLET BY MOUTH ONCE 05/26 completed Not Available Not Available Not Available Vitals Date Recorded Body height Provider Name an d Address Organization Details Last Updated DateTime 06/12/2022 167.64 cm Loren Bernabe PA - [facility] 0 06/12/2022 11:21:22 Date Recorded Body mass index (BMI) Body weight Provider Name and Address Organization Details Last Updated DateTime 06/12/2022 38.7 kg/m2 768505.17 g Loren Bernabe PA - [facility] 06/12/2022 11:21:27 Date Recorded Oxygen saturation Oxygen saturation in Arterial blood by Pulse oximetry Provider Name and Address Organization Details Last Updated DateTime 06/12/2022 100 % 100 % Loren Bernabe PA - [facility] 06/12/2022 11:24:03 Date Recorded Pain severity - 0-10 verbal numeric rating [Score] - Reported Provider Name and Address Organization Details Last Updated DateTime 06/12/2022 9 Loren [place] PA - [facility] 0 06/12/2022 11:24:11 Date Recorded Heart rate Provider Name an d Address Organization Details Last Updated DateTime 06/12/2022 84 /min Loren [place] PA - [facility] 0 06/12/2022 11:24:07 Date Recorded Respiratory rate Provider Name a nd Address Organization Details Last Updated DateTime 06/12/2022 20 /min Loren Srinivasa PA - [facility] 0 06/12/2022 11:24:12 Date Recorded Body temperature Provider Name a nd Address Organization Details Last Updated DateTime 06/12/2022 98.2 [degF] Loren Srinivasa PA - [facility] 06/12/2022 11:24:15 Date Recorded Body height Provider Name an d Address Organization Details Last Updated DateTime 05/26/2022 167.64 cm Angelique Villa PA - [facility] 05/26/2022 10:19:52 Date Recorded Body mass index (BMI) Body weight Provider Name and Address Organization Details Last Updated DateTime 05/26/2022 38.7 kg/m2 132229.17 g Angelique Villa PA - [facility] 05/26/2022 10:19:54 Date Recorded Pain severity - 0-10 verbal numeric rating [Score] - Reported Provider Name and Address Organization Details Last Updated DateTime 05/26/2022 9 Angelique Villa PA - [facility] 05/26/2022 10:20:00 Date Recorded Oxygen saturation Oxygen saturation in Arterial blood by Pulse oximetry Provider Name and Address Organization Details Last Updated DateTime 05/26/2022 99 % 99 % Angelique Villa PA - [facility] 05/26/2022 10:21:36 Date Recorded Heart rate Provider Name an d Address Organization Details Last Updated DateTime 05/26/2022 66 /min Angelique Villa PA - [facility] 05/26/2022 10:21:38 Date Recorded Respiratory rate Provider Name a nd Address Organization Details Last Updated DateTime 05/26/2022 18 /min Angelique Villa PA - [facility] 05/26/2022 10:21:40 Date Recorded Body temperature Provider Name a nd Address Organization Details Last Updated DateTime 05/26/2022 98.2 [degF] Angelique Allen PA - [facility] 05/26/2022 10:22:12 Date Recorded Systolic blood pressure Diastolic blood pressure Provider Name and Address Organization Details Last Updated DateTime 06/12/2022 139 mm[Hg] 91 mm[Hg] Loren Bernabe PA - [facility] 06/12/2022 11:23:59 Date Recorded Systolic blood pressure Diastolic blood pressure Provider Name and Address Organization Details Last Updated DateTime 05/26/2022 33 mm[Hg] 83 mm[Hg] Angelique Allen PA - [facility] 05/26/2022 10:21:29 Social History Question Answer Notes LastModified by Organizat ion Details LastModified Time Tobacco Smoking Status Current Every Day Smoker Angelique españa PA [facility] 05/26/2022 10:19:05 What Is Your Level Of Alcohol Consumption? Occasional Information not available 05/26/2022 How Many Times Per Week Do You Consume Alcohol? Less Than 1 Time Per Week 1x A Month Information not available 05/26/2022 How Much Tobacco Do You Smoke? 1 PPW Information not available 05/26/2022 Do You Use Any Illicit Or Recreational Drugs? No Information not available 05/26/2022 Have You Recently Traveled Abroad? No Information not available 05/26/2022 Do You Or Have You Ever Used Any Other Forms Of Tobacco Or Nicotine? No Information not available 05/26/2022 Sex: Unknown Functional Status None recorded. Mental Status None recorded. Family History Relationship Description Onset Age of this Age Resolved Age Notes LastModified by Organization Details LastModified Time Father No current problems or disability [email or web address] Not available 05/26 10:18:34 Mother No current problems or disability [email or web address] Not available 05/26 10:18:34 Medical History No medical history recorded. Gynecological HistoryNo gynecological history recorded. Obstetrics History GPAL:G 0 P 0 0 0 0 Immunizations Vaccine Type Date Status Note Provider Nam e and Address Organization Details Recorded Time Influenza, split virus, quadrivalent, preservative 6 completed Angelique Monfette null, PA - [facility] 05/26/2022 10:17:14 COVID-19, mRNA, LNP-S, PF, 30 mcg/0.3 mL dose 1 completed Angelique Monfette null, PA - [facility] 05/26/2022 10:17:14 COVID-19, mRNA, LNP-S, PF, 30 mcg/0.3 mL dose, aaliyah-sucrose 2 completed Angelique Monfette null, PA - [facility] 05/26/2022 10:17:14 COVID-19, mRNA, LNP-S, PF, 30 mcg/0.3 mL dose, aaliyah-sucrose 2 completed Angelique Monfette null, PA - [facility] 05/26/2022 10:17:14 Tdap 6 completed Angelique Monfette null, PA - [facility] 05/26/2022 10:17:14 Influenza, split virus, quadrivalent, PF 9 completed Angelique Monfette null, PA - [facility] 05/26/2022 10:17:14 Past Encounters Encounter ID Performer Location Encounter Start Date Encounter Closed Date Diagnosis/Indication Diagnosis SNOMED-CT Code Diagnosis ICD10 Code Diagnosis Note [id number] [facility] [address] [place] [address] 04/24/2020 12:16:51 04/24/2020 13:25:17 [id number] [facility] [address] [place] [address] 02/12/2022 17:06:58 02/12/2022 18:54:46 [id number] Jesus Herrera NP [facility] [address] [place] [address] 05/26/2022 09:16:20 05/26/2022 10:45:55 Exposure to SARS-CoV-2 868287341 Z20.822 Streptococ nestor sore throat 76929322 J02.0 [id number] Madisyn Sauer MD [address] [address] [place] [address] 06/12/2022 09:21:22 06/12/2022 12:44:57 Streptococcal sore throat 10471901 J02.0 Health Concerns Section Related Observation LastModified by Organization Detai ls LastModified Time None Recorded Concern Status LastModified by Organization Details LastModified Time None Recorded Advance Directives Directive None Recorded Payers Encounter Date Sequence Insurance Name Policy Number Policy Kraus Covered Member ID Kraus Member ID Guarantor Name 04/24/2020 1 [facility] (MEDICAID HMO) [place] Ofelia Cox [id number] Ofelia Cox 02/12/2022 1 [facility] PLAN (MEDICAID HMO) [place] Ofelia Cox [id number] Ofelia Cox 05/26/2022 1 [facility] PLAN (MEDICAID HMO) [place] Ofelia Cox [id number] Ofelia Cox 06/12/2022 1 [facility] PLAN (MEDICAID HMO) [place] Ofelia Cox [id number] Ofelia Cox Notes Date Note Type Note Provider Name and Address Organization Details Recorded Time 3 text/html Sore throatReported bypatient.Source of patient informationInformation obtained from patient; Patient arrived at Urgent Care ambulatory; learning styles: auditory Location:throat Severity:mild Quality:sharp; burning Onset/Timin days Associated Symptoms:no sputum production; no shortness of breath; no wheezing; no vomiting; no nausea;sore throat;hoarseness;coughing; sinus pain/ congestion Context:no foreign travel; non-smoker;sick contact Modifying Factors:exposed to Strep non household Jesus NIGEL Herrera [address] [place], [address], PA - [facility] 05/26/2022 10:43:44 3 text/html Sore throatReported bypatient.Source of patient informationInformation obtained from patient; Patient arrived at Urgent Care ambulatory Location:throat Severity:moderate Quality:hurts to swallow Onset/Timin days Associated Symptoms:no cough; no sputum production; no shortness of breath; no wheezing; no sinus pain; no vomiting; No hoarseness;nausea Context:no sick contacts;smokerNotes:31 year old female presenting for evaluation of a sore throat, nasal congestion, right ear pain and nausea with swollen neck glands getting worse for the past 2 days. She was diagnosed with strep pharyngitis 05/26/2022 and completed a full 10 day course of amoxicillin with initial resolution of symptoms. No fever, chills, headache, rash, stiff neck, cough, chest pain, shortness of breath, vomiting, diarrhea, abdominal pain or body aches. Madisyn Sauer MD [address] [place], [address], PA - [facility] 06/12/2022 12:40:51 OBGyn Episode No OBEpisode recorded.
--- OUTSIDE RECORDS SUMMARY | 2024-04-26 14:51 | XMS_ITS | Encounter Summary ---
Author Organization [facility] Address [address] [place] [phone] Phone Care Team Providers Care Mine Inspector Federal Name Role Phone Laura Peñaloza MD Primary Care Provider Unava ilable Encounter Details Date Type Department Care Team (Late st Contact Info) Description 11/14/2016 Conversion Encounter [facility] - [address] [address] Social History Tobacco Use Types Packs/Day Years Used Date Smoking Tobacco: Never Assessed Comments Unknown Sex and Gender Information Value Date Recorded Sex Assigned at Not on file Legal Sex Female 4:25 PM EDT Gender Identity Not on file Sexual Orientation Not on file documented as of this encounter Plan of Treatment Not on file documented as of this encounter Visit Diagnoses Not on filedocumented in this encounter Care Teams Mine Inspector Federal Relationship Specialty Start Date End Date Laura Peñaloza MD PCP - General 11/08/16 documented as of this encounter
--- OUTSIDE RECORDS SUMMARY | 2024-04-26 14:51 | XMS_ITS | Clinical Summary ---
Author Organization [facility] Address [address] [place] [address] [address] [place] [address] Care Team Providers Care Press Helper Name Role Phone Unavailable Primary Care Provider Unavailabl e Allergies No known active allergies Medications Sod Fluoride-Potass ium Nitrate 1.1-5 % paste Please use pea size to brush twice daily. Spit, do not rinse. 112 g 1 3 Active albuterol (Ventolin HFA) 108 (90 Base) MCG/ACT inhaler TAKE 2 PUFFS BY MOUTH 4 TIMES A DAY NEEDED FOR SHORTNESS OF BREATH OR WHEEZING Active Active Problems No known active problems Social History Tobacco Use Types Packs/Day Years Used Date Smoking Tobacco: Some Days Cigarettes Smokeless Tobacco: Never Tobacco Cessation:Ready to Q uit: Not Asked; Counseling Given: Not Answered Comments:weed Alcohol Use Standard Drinks/Week Comments Not Asked 0 (1 standard drink = 0.6 oz pur e alcohol) socialy Comments No Sex and Gender Information Value Date Recorded Sex Assigned at Female 01/28/2022 10:14 AM EDT Legal Sex Female 10:14 AM EDT Gender Identity Female 01/28/2022 10:14 AM EDT Sexual Orientation Choose not to disclose 2021 10:14 AM EDT Last Filed Vital Signs Vital Sign Reading Time Taken Comments Blood Pressure 125/65 03/21/2023 3:35 PM EST Pulse - - Temperature - - Respiratory Rate - - Oxygen Saturation - - Inhaled Oxygen Concentration - - Weight - - Height - - Body Mass Index - - Plan of Treatment Upcoming Encounters Date Type Department Care Team (Late st Contact Info) Description 05/24/2024 2:30 PM EST Office Visit [facility] [address] [place] [address] Evangelina Astudillo DDS [address] [place] [address] Health Maintenance Due Date Last Done Comments Dental Oral Exam 1988 Dental Prophylaxis 1988 Depression Screening 1988 HIV Screening 1988 Lipid Panel 1988 SDOH Screening 1988 Pneumococcal Vaccine: Pediatrics (0 to 5 Years) and At-Risk Patients (6 to 64 Years) (1 of 2 - PCV) 1994 Alcohol/Substance Use Screening 2000 Family Planning (PISQ) 09/02/2003 Hepatitis C Screening 2006 Hepatitis A Vaccines (1 of 2 - Risk 2-dose series) 09/02/2007 Hepatitis B Vaccines (1 of 3 - 19+ 3-dose series) 09/02/2007 Pap Smear 2009 Dental X-Ray: Full Mouth 12/28/2017 12/27/2014 Cervical Cancer Screening 2018 HPV/Cotest 2018 COVID-19 Vaccine ( - 2023-2 5 season) 2023 Influenza Vaccine (#1) 2023 Tobacco Screening 12/11/2024 12/12/2023 Dental X-Ray: Bitewings 12/12/2024 12/12/19 24, 03/21/2023 DTaP/Tdap/Td Vaccines (3 - T d or Tdap) 08/31/2033 2023, 11/11/2017, 10/22/2010 Zoster Vaccines (1 of 2) 2038 RSV Patients and Patients Aged 60 years or older (1 - 1-dose 75+ series) 09/02/2063 HIB Vaccines Aged Out No longer eligi ble based on patient's age to complete this topic HPV Vaccines Aged Out No longer eligi ble based on patient's age to complete this topic IPV Vaccines Aged Out No longer eligi ble based on patient's age to complete this topic Meningococcal Vaccine Aged Out No timo marcela eligible based on patient's age to complete this topic RSV under 20 months Aged Out No longe r eligible based on patient's age to complete this topic Rotavirus Vaccines Aged Out No longer eligible based on patient's age to complete this topic Procedures Procedure Name Priority Date/Time Associated Diagnosis Comments BITEWING - SINGLE RADIOGRAPHIC IMAGE Routine 12/12/2023 1:00 PM EDT Dental caries Dental abscess Closed fracture of tooth, initial encounter PANORAMIC RADIOGRAPHIC IMAGE Routine 12/27/2014 12:00 AM EDT from Last 3 Months or Most Recently Relevant to Health Maintenance Insurance [facility] ST[facility] ADULT
--- OUTSIDE RECORDS SUMMARY | 2024-04-26 14:51 | XMS_ITS | Encounter Summary ---
Author Organization [facility] Address [address] [place] [address] Phone Care Team Providers Care Lifeline Representatives Name Role Phone Laura Peñaloza MD Primary Care Provider Unava ilable Encounter Details Date Type Department Care Team ([facility] st Contact Info) Description 09/08/2015 Documentation [facility] Family Medicine [address] [place], [place] [phone] Family Medicine, Physician [address] [place], [place] [address] Social History Tobacco Use Types Packs/Day Years [...] on filedocumented in this encounter Care Teams Lifeline Representatives Relationship Specialty Start Date End Date Laura Peñaloza MD PCP - General 11/08/16 documented as of this encounter
--- OUTSIDE RECORDS SUMMARY | 2024-04-26 14:51 | XMS_ITS | Clinical Summary ---
Author Organization [facility] Address [address] [place] [phone] Phone Care Team Providers Care Director Records Management Name Role Phone Laura Peñaloza MD Primary Care Provider Carlos ildax Immunizations Name Administration Dates Next Due DTP 07/17/1993, 1,04/21/1989,02/04,1988 HPV, Quadrivalent 05/13/2007,01/06/2007,11/01/19 07 Hep B, ped/adol 07/23/2000,03/10/2000,01/16/2000 Hib (PRP-T) 04/03/1990 IPV 07/17/1993, 1,02/04/1989,12/05 Influenza, injectable, trivalent 02/14/2006,02/28 MMR 09/22/2000,04/03/1990 Meningococcal Conj (Menactra) MCV4P 10/31/2006 Td (adult) (MBL), 2 Lf tetan us toxoid, PF, adsorbed 09/22/2000 Tdap 10/31/2006 Social History Tobacco Use Types Packs/Day Years Used Date Smoking Tobacco: Never Assessed Comments Unknown Sex and Gender Information Value Date Recorded Sex Assigned at Not on file Legal Sex Female 4:25 PM EDT Gender Identity Not on file Sexual Orientation Not on file Plan of Treatment Health Maintenance Due Date Last Done Comments Varicella Vaccines (1 of 2 - 13+ 2-dose series) 2001 Consider Men B Vaccine (1 of 2 - Bexsero 2-dose series) 2004 DTaP,Tdap,and Td Vaccines (7 - Td or Tdap) 10/31/2016 10/31/2006, 09/22/2000, 07/17/1993, Additional history exists Influenza Vaccines (#1) 2023 02/14/2006, 03/13 COVID-19 Vaccine ( season) 2023 HIB Vaccines Completed 04/03/1990 IPV Vaccines Completed 07/17/1993, 06/1990, 02/04/1989, Additional history exists Hepatitis B Vaccines Completed 07/23/2000, 03/10/2000, 01/16/2000 MMR Vaccines Completed 09/22/2000, 04/03/1990 Meningococcal Vaccine Completed 10/31/2006 HPV Vaccines Completed 05/13/2007, 11/2006, 10/31/2006 Hepatitis A Vaccines Aged Out No long er eligible based on patient's age to complete this topic Men B Vaccine Aged Out No longer elig ible based on patient's age to complete this topic Pneumococcal Vaccine Aged Out No long er eligible based on patient's age to complete this topic Care Teams Director Records Management Relationship Specialty Start Date End Date Laura Peñaloza MD PCP - General 11/08/16
== END 2024-04-26 10:51 | disposition home or self-care (01) ==
PROVIDERS: PCP Internal Medicine; Visit Provider Internal Medicine
DX: Z00.00 Encounter for general adult medical examination without abnormal findings (principal); F33.9 Major depressive disorder, recurrent, unspecified; E66.9 Obesity, unspecified; Z68.39 Body mass index [BMI] 39.0-39.9, adult; Z72.0 Tobacco use; J45.909 Unspecified asthma, uncomplicated; R79.89 Other specified abnormal findings of blood chemistry; I10 Essential (primary) hypertension; Z23 Encounter for immunization

== ENCOUNTER → 2024-04-26 10:13 | Outpatient (BNVA) | payer OTHER, SELFPAY | PROVIDERS: PCP Internal Medicine; Visit Provider Internal Medicine | DX: Z00.00 Encounter for general adult medical examination without abnormal findings (principal); Z23 Encounter for immunization; E66.9 Obesity, unspecified; J45.909 Unspecified asthma, uncomplicated; F33.9 Major depressive disorder, recurrent, unspecified; R79.89 Other specified abnormal findings of blood chemistry; I10 Essential (primary) hypertension; Z72.0 Tobacco use | CPT/HCPCS: 90471; 90677; 99395 ==